=== PATIENT | female | born 2000 | race Caucasian/White ===

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

== ENCOUNTER 2018-03-06 13:14 | Emergency (ER) | payer BC ==
[2018-03-06] MEDS ORDERED: LIDOCAINE 2% VISCOUS 15 ML UDCUP PO ONE (14:00)
[2018-03-06] MEDS ORDERED: NS 1,000 ML IV ONE (14:00)
[2018-03-06] MEDS ORDERED: HYOSCYAMINE SULFATE 0.125 MG TAB PO ONE (14:00)
[2018-03-06] MEDS ORDERED: MAG HYDROX/AL HYDROX/SIMETH 30 ML UDCUP PO ONE (14:00)
[2018-03-06] MEDS ORDERED: ONDANSETRON 4 MG/2 ML VIAL IVP ONE (14:00)
[2018-03-06] MEDS ORDERED: HYDROmorphONE/DILAUDID 2 MG/ML INJ IVP ONE (14:00)
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
[2018-03-06 14:07] LABS: PLATELET COUNT 161 10^3/uL (150-400)
[2018-03-06 15:49] VITALS: BP 112/74
== END 2018-03-06 15:43 | disposition home or self-care (01) ==
DX: R10.13 Epigastric pain (principal); E86.9 Volume depletion, unspecified
CPT/HCPCS: 96374; J1170; J2405